=== PATIENT | male | born 1970 | race African-American/Black ===

== ENCOUNTER 2017-11-08 17:09 | Emergency (ER) | payer SELFPAY ==
[2017-11-08] MEDS ORDERED: Thiamine IV 100 MG, Folic Acid IV* 1 MG, Multiple Vitamin IV ADULT* 10 ML in NS 0.9% 10... IV ONE (17:24)
[2017-11-08 17:44] LABS: ABS Basophils 0 10^3/ul (0-0.2); ABS Eosinophils 0.1 10^3/ul (0-0.6); ABS Lymphocytes 1.5 10^3/ul (1.0-4.8); ABS Monocytes 0.8 10^3/ul (0-0.8); ABS Neutrophils 6.1 10^3/ul (1.5-7.7); ABS Nucleated RBC 0 10^3/ul; Eosinophil % 1.1 % (0-6); Hematocrit 51 % (42-52); Hemoglobin 17.6 g/dl (14.0-18.0); Lymphocyte % 17.5 % (25-47); Mean Corpuscular HGB Conc 34 g/dl (31-36); Mean Corpuscular Hemoglobin 33 pg (27-31); Mean Corpuscular Volume 96 fL (80-94); Mean Platelet Volume 7.9 um3 (7.4-10.4); Nucleated Red Blood Cells % 0.1; Platelet Count 203 10^3/ul (150-450); Red Blood Count 5.35 10^6/ul (4.0-5.4); Red Cell Distribution Width 15 % (10.5-15); White Blood Count 8.5 10^3/ul (3.5-10.8)
[2017-11-08 17:51] LABS: Urine Appearance Clear; Urine Blood Negative (Negative); Urine Color Colorless; Urine Ketones Negative (Negative); Urine Protein Negative (Negative); Urine Specific Gravity 1.001 (1.010-1.030); Urine Urobilinogen Negative (Negative)
[2017-11-08 18:04] LABS: EGFR Non-African American 86.4 (>60)
[2017-11-08 21:53] VITALS: BP 145/88
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
== END 2017-11-08 21:52 | disposition home or self-care (01) ==
LOC: ED 17:09
DX: F10.129 Alcohol abuse with intoxication, unspecified (principal); Z72.0 Tobacco use; Y90.8 Blood alcohol level of 240 mg/100 ml or more
CPT/HCPCS: 36415; 80053; 80307; 80320; 80329; 81003; 84443; 85025; 96360; 99284; G0480; J3411

== ENCOUNTER 2022-09-14 12:09 | Inpatient (IN) ==
[2022-09-14] MEDS ORDERED: LORazepam 2 mg VIAL 1 ml IV PUSH ONE (12:24)
[2022-09-14] MEDS ORDERED: Lorazepam PYXIS KEY PRN (12:24)
[2022-09-14] MEDS ORDERED: Thiamine 100 MG/ML 2 ml VIAL 100 MG, Folic Acid IV 1 MG, Multiple Vitamin IV ADULT 10 M... IV ONE (12:26)
[2022-09-14] MEDS ORDERED: Midazolam 2 mg/2 ml VIAL 1 mg/ml 2 ml VIAL (2 mg) IV SLOW PU ONE ×2 (12:46→20:14)
[2022-09-14] MEDS ORDERED: niCARdipine 0.1MG/ML IVPREMIX 20 MG/200 ML BAG IV ONE (12:52)
[2022-09-14] MEDS ORDERED: MULTIPLE VITAMIN IV ONE (13:00)
[2022-09-14] MEDS ORDERED: [UNRECOGNIZED DRUG - OTHER] IV ONE (13:00)
[2022-09-14] MEDS ORDERED: FOLIC ACID IV ONE ×2 (13:00→19:00)
[2022-09-14] MEDS ORDERED: THIAMINE IV ONE ×2 (13:00→19:00)
[2022-09-14] MEDS ORDERED: niCARdipine 0.1MG/ML IVPREMIX 20 MG/200 ML BAG IV SCH (13:00)
[2022-09-14 13:01] LABS: Hematocrit 45 % (42-52); Hemoglobin 15.7 g/dL (14.0-18.0); Mean Corpuscular Hemoglobin 32 pg (27-31); Mean Corpuscular Hgb Conc 35 g/dL (31-36); Mean Corpuscular Volume 90 fL (80-94); Red Blood Count 4.96 10^6 /uL (4.18-5.48); Red Cell Distribution Width 15 % (10-15); White Blood Count 15.2 10^3/uL (3.5-10.8)
[2022-09-14 13:21] LABS: ABS Lymphocytes 0.8 10^3/ul (1.0-4.8); ABS Monocytes 0.9 10^3/ul (0-0.8); ABS Neutrophils 13.5 10^3/ul (1.5-7.7); Eosinophil % 0.1 %; Mean Platelet Volume 9.1 fL (7.4-10.4); Nucleated Red Blood Cells % 0.1; Platelet Count 95 10^3/uL (150-450)
[2022-09-14] MEDS ORDERED: diazePAM INJ CARPUJECT 5 MG/ML SYRINGE IV ONE ×3 (13:40→16:38)
[2022-09-14 13:43] LABS: ALT 31 U/L (7-52); Albumin 5.3 g/dL (3.2-5.2); Albumin/Globulin Ratio 2.1 (1-3); Alcohol, S < 13 mg/dL (<13); Alkaline Phosphatase 74 U/L (35-149); Blood Urea Nitrogen 54 mg/dL (6-24); CO2 Carbon Dioxide 21 mmol/L (22-32); Calcium 10.8 mg/dL (8.6-10.3); Chloride 105 mmol/L (101-111); Creatinine, Serum 3.33 mg/dL (0.67-1.17); Globulin 2.5 g/dL (2-4); Glucose 124 mg/dL (70-100); Magnesium 2.5 mg/dL (1.9-2.7); Sodium 144 mmol/L (135-145); Total Protein 7.8 g/dL (6.4-8.9); eGFR CKD-EPI 21.6 (>60)
[2022-09-14 13:57] LABS: Anion Gap 18 mmol/L (2-11)
[2022-09-14 14:11] LABS: Creatine Kinase 2178 U/L (10-223)
[2022-09-14] MEDS ORDERED: Lactated Ringers 1000 ml BAG 1,000 ML IV ONE ×2 (14:12→17:49)
[2022-09-14 15:08] LABS: Lipase 21 U/L (11.0-82.0)
[2022-09-14] MEDS ORDERED: NS 0.9% IVPB ONE (15:18)
[2022-09-14] MEDS ORDERED: Dexamethasone IV 4 MG/ML VIAL 1 ml VIAL IV SLOW PU ONE (15:18)
[2022-09-14] MEDS ORDERED: Acyclovir IV 1,000 MG in NS 0.9% 250 ml 250 ML IVPB ONE (15:18)
[2022-09-14] MEDS ORDERED: AMPICILLIN ADVAN IVPB ONE (15:18)
[2022-09-14 15:19] LABS: INR 1.24 (0.88-1.18)
[2022-09-14 15:31] LABS: Urine Benzodiazepine Screen None Detected (None Detect); Urine Cannabinoids Screen None Detected (None Detect); Urine Opiates Screen None Detected (None Detect)
[2022-09-14 16:03] LABS: Potassium Redraw 3.4 mmol/L (3.5-5.0)
[2022-09-14] MEDS: cefTRIAXone 1 gm/50 mL D5W 1 GM/50 ML BAG IV SCH (16:15)
[2022-09-14] MEDS ORDERED: levETIRAcetam 1000MG IVPREMIX 1,000 MG/100 ML BAG IVPB ONE (16:38)
[2022-09-14] MEDS: diazePAM INJ CARPUJECT 5 MG/ML SYRINGE IV ONE ×2 (17:07→17:08)
[2022-09-14] MEDS ORDERED: HYDROmorphone 1 MG/1 ML SYRINGE IV ONE ×2 (17:14→18:17)
[2022-09-14] MEDS ORDERED: Succinylcholine 200 mg VIAL 20 mg/ml 10 ml VIAL (200 mg) IV ONE (17:14)
[2022-09-14] MEDS ORDERED: Etomidate 20 mg/10 ml 2 MG/ML 10 ml VIAL IV ONE (17:14)
[2022-09-14] MEDS ORDERED: Propofol 10 mg/ml 100 ML BTL 1,000 MG/100 ML BTL ONE (17:19)
[2022-09-14] MEDS ORDERED: Succinylcholine 200 mg VIAL 20 mg/ml 10 ml VIAL (200 mg) ONE ×2 (17:20→17:41)
[2022-09-14] MEDS: Propofol 10 mg/ml 100 ML BTL 1,000 MG/100 ML BTL IV SCH (17:41)
[2022-09-14] MEDS ORDERED: Etomidate 40 mg/20 ml (2 MG/ML) 20 ml VIAL (40 mg) ONE (17:41)
[2022-09-14] MEDS ORDERED: Folic Acid IV 1 MG in NS 0.9% 50 ML 50 ML IV ONE (18:20)
[2022-09-14] MEDS ORDERED: Vancomycin 1,500 MG in NS 0.9% 250 ml 250 ML IVPB ONE (18:28)
[2022-09-14 18:38] LABS: Urine Appearance Cloudy; Urine Bilirubin Negative (Negative); Urine Blood 3+ (Negative); Urine Color Amber; Urine Glucose 1+(50 mg/dL) (Negative); Urine Ketones Negative (Negative); Urine Nitrite Negative (Negative); Urine Protein 2+(100 mg/dL) (Negative); Urine Specific Gravity 1.014 (1.002-1.030); Urine Urobilinogen Negative (Negative)
[2022-09-14 18:51] LABS: Body Fluid Source Cerebral Spinal
[2022-09-14 18:55] LABS: Urine Bacteria Absent (Absent); Urine Red Blood Cell 3+(>10/hpf) (Absent); Urine Squamous Epithelial Cell Present (Absent); Urine White Blood Cell Trace(0-5/hpf) (Absent)
[2022-09-14] MEDS ORDERED: Vancomycin 1,000 MG in NS 0.9% 250 ml 250 ML IVPB ONE (18:59)
[2022-09-14] MEDS ORDERED: Vancomycin per Pharmacy 1 EA NOTE FOLLOW UP SCH (19:00)
[2022-09-14] MEDS ORDERED: Chlorhexidine MOUTHWASH 0.12% 15 ML UDC TOPICAL SCH (19:00)
[2022-09-14] MEDS ORDERED: Thiamine IV 100 MG/ML VIAL (only for Bannana Bags !) IVPB SCH (19:00)
[2022-09-14] MEDS ORDERED: [UNRECOGNIZED DRUG - OTHER] IV ONE (19:00)
[2022-09-14] MEDS ORDERED: MVI IV ONE (19:00)
[2022-09-14 19:09] LABS: Urine Creatinine Concentration 192.12 mg/dL (20.00-370.00); Urine Sodium Concentration < 18 mmol/L
[2022-09-14 19:11] LABS: CSF Glucose 76 mg/dL (40-70)
[2022-09-14 19:14] LABS: Albumin/Globulin Ratio 1.8 (1-3); Calcium 8.8 mg/dL (8.6-10.3); Creatinine, Serum 3.17 mg/dL (0.67-1.17); Globulin 2.2 g/dL (2-4); Phosphorus 3.6 mg/dL (2.5-5.0); Potassium 3.3 mmol/L (3.5-5.0); Total Bilirubin 2.3 mg/dL (0.2-1.0); Total Protein 6.2 g/dL (6.4-8.9)
[2022-09-14 19:23] LABS: Ferritin 1119.7 ng/mL (24-336)
[2022-09-14 19:37] LABS: PCO2 Arterial 34 mmHg (35-45); PO2 Arterial 338 mmHg (80-100)
[2022-09-14 19:40] LABS: Direct Bilirubin 0.9 mg/dL (0.03-0.18); Indirect Bilirubin 2.3 mg/dL (0.3-1.0); Total Bilirubin 3.2 mg/dL (0.2-1.0)
[2022-09-14 19:57] LABS: Body Fluid Appearance Clear; Body Fluid Color Colorless; CSF Tube # 4
[2022-09-14 19:59] LABS: Body Fluid WBC 2 /mcL
[2022-09-14] MEDS ORDERED: Midazolam 2 mg/2 ml VIAL 1 mg/ml 2 ml VIAL (2 mg) ONE (20:17)
[2022-09-14 20:40] LABS: Body Fluid Mono 70 %; Body Fluid Total Cells Counted 30
[2022-09-14] MEDS ORDERED: Heparin 5000 UNITS/ML 1 mL VIAL SUBCUT SCH (21:00)
[2022-09-14 21:02] LABS: PCO2 Arterial 33 mmHg (35-45); PO2 Arterial 114 mmHg (80-100)
[2022-09-14] MEDS: Pantoprazole VIAL 40 MG VIAL IV SCH (22:15)
[2022-09-14] MEDS: Dexamethasone IV 4 MG/ML VIAL 1 ml VIAL IV SLOW PU SCH (22:16)
[2022-09-14 22:56] LABS: Erythrocyte Sed Rate 13 mm/Hr (0-19)
[2022-09-14] MEDS: Lactated Ringers 1000 ml BAG 1,000 ML IV SCH (23:30)
[2022-09-15] MEDS: Ampicillin ADVAN 2 GM in NS 0.9% 100 ml BAG 100 ML IVPB SCH ×2 (00:34→08:10)
[2022-09-15] MEDS: Chlorhexidine MOUTHWASH 0.12% 15 ML UDC TOPICAL SCH ×6 (00:45→22:31)
[2022-09-15] MEDS: Dexmedetomidine 1,000 MCG in NS 0.9% 250 ml 240 ML IV SCH ×2 (02:07→07:32)
[2022-09-15] MEDS: cefTRIAXone 1 gm/50 mL D5W 1 GM/50 ML BAG IV SCH (03:59)
[2022-09-15] MEDS ORDERED: levETIRAcetam 1000MG IVPREMIX 1,000 MG/100 ML BAG IVPB ONE (05:00)
[2022-09-15] MEDS: NS 0.9% IVPB SCH ×2 (05:01→16:10)
[2022-09-15] MEDS: ACYCLOVIR IVPB SCH ×2 (05:01→16:10)
[2022-09-15] MEDS: Dexamethasone IV 4 MG/ML VIAL 1 ml VIAL IV SLOW PU SCH ×3 (05:04→22:32)
[2022-09-15 05:53] LABS: ABS Lymphocytes 0.3 10^3/ul (1.0-4.8); ABS Monocytes 0.2 10^3/ul (0-0.8); ABS Neutrophils 8.5 10^3/ul (1.5-7.7); Hematocrit 27 % (42-52); Hemoglobin 9.5 g/dL (14.0-18.0); Lymphocyte % 3.6 %; Mean Corpuscular Hemoglobin 33 pg (27-31); Mean Corpuscular Hgb Conc 36 g/dL (31-36); Mean Corpuscular Volume 91 fL (80-94); Mean Platelet Volume 10.1 fL (7.4-10.4); Nucleated Red Blood Cells % 0.1; Platelet Count 67 10^3/uL (150-450); Red Blood Count 2.92 10^6 /uL (4.18-5.48); Red Cell Distribution Width 15 % (10-15)
[2022-09-15] MEDS ORDERED: Enoxaparin 40 MG/0.4 ML SYR SUBCUT SCH (06:00)
[2022-09-15 06:12] LABS: Albumin/Globulin Ratio 1.9 (1-3); C Reactive Protein 24.18 mg/L (<8.01); Calcium 8.1 mg/dL (8.6-10.3); Creatinine, Serum 2.8 mg/dL (0.67-1.17); Direct Bilirubin 0.4 mg/dL (0.03-0.18); Globulin 1.6 g/dL (2-4); Indirect Bilirubin 0.8 mg/dL (0.3-1.0); Phosphorus 4.7 mg/dL (2.5-5.0); Potassium 3.5 mmol/L (3.5-5.0); Total Bilirubin 1.2 mg/dL (0.2-1.0); Total Protein 4.6 g/dL (6.4-8.9); eGFR CKD-EPI 26.7 (>60)
[2022-09-15] MEDS: levETIRAcetam 500 MG IVPREMIX 500 MG/100 ML BAG IV SCH ×2 (06:16→18:10)
[2022-09-15] MEDS: Propofol 10 mg/ml 100 ML BTL 1,000 MG/100 ML BTL IV SCH ×3 (07:28→16:52)
[2022-09-15] MEDS: Lactated Ringers 1000 ml BAG 1,000 ML IV SCH (07:58)
[2022-09-15] MEDS: KCL 20 MEQ/100 ML IVPREMIX 20 MEQ/100 ML BAG IV SCH ×2 (08:04→10:58)
[2022-09-15 08:25] LABS: PCO2 Arterial 26 mmHg (35-45); PO2 Arterial 160 mmHg (80-100)
[2022-09-15] MEDS: Thiamine IV 500 MG in NS 0.9% 250 ML (Wernicke-Korsakoff) IV SCH ×3 (08:51→22:32)
[2022-09-15] MEDS ORDERED: Thiamine IV 100 MG/ML VIAL (only for Bannana Bags !) IVPB SCH (09:00)
[2022-09-15] MEDS ORDERED: Mannitol 25% (12.5 GM) 50 ML 12.5 GM/50 ML VIAL IV ONE (09:10)
[2022-09-15] MEDS ORDERED: Mannitol 25% (12.5 GM) 50 ML 12.5 GM/50 ML VIAL ONE (09:10)
[2022-09-15] MEDS ORDERED: MANNITOL IVPB ONE (09:30)
[2022-09-15 09:49] LABS: ABS Lymphocytes 0.3 10^3/ul (1.0-4.8); ABS Monocytes 0.2 10^3/ul (0-0.8); ABS Neutrophils 7.5 10^3/ul (1.5-7.7); Hematocrit 26 % (42-52); Hemoglobin 9.1 g/dL (14.0-18.0); Lymphocyte % 3.8 %; Mean Corpuscular Hemoglobin 32 pg (27-31); Mean Corpuscular Hgb Conc 35 g/dL (31-36); Mean Corpuscular Volume 93 fL (80-94); Mean Platelet Volume 10.1 fL (7.4-10.4); Platelet Count 68 10^3/uL (150-450); Red Blood Count 2.81 10^6 /uL (4.18-5.48); Red Cell Distribution Width 15 % (10-15)
[2022-09-15] MEDS ORDERED: Magnesium Sulfate 2 gm BAG 2 GM/50 ML BAG IVPB ONE (10:32)
[2022-09-15 11:34] LABS: High Sensitivity Troponin 1 Hr 364 pg/mL (<20)
[2022-09-15 11:42] LABS: LDH 365 U/L (140-271); Sodium 145 mmol/L (135-145)
[2022-09-15 12:59] LABS: HIV 4th Generation Nonreactive (Nonreactive)
[2022-09-15] MEDS ORDERED: Labetalol IV 5 MG/ML 20 ml VIAL IV PUSH PRN ×2 (13:31→22:00)
[2022-09-15] MEDS ORDERED: Labetalol IV 5 MG/ML 20 ml VIAL IV PUSH ONE (14:21)
[2022-09-15] MEDS ORDERED: Vancomycin 750 MG in NS 0.9% 250 ML IVPB SCH (15:00)
[2022-09-15] MEDS ORDERED: Acetaminophen IV 1 GM/100ML 1,000 MG/100 ML BAG IV ONE (15:09)
[2022-09-15] MEDS ORDERED: hydrALAZINE 20 mg/ml 1 ML Vial IV ONE (15:09)
[2022-09-15] MEDS: Acetaminophen IV 1 GM/100ML 1,000 MG/100 ML BAG IV PRN (15:10)
[2022-09-15] MEDS ORDERED: hydrALAZINE 20 mg/ml 1 ML Vial IV IV SLOW PU PRN (15:23)
[2022-09-15] MEDS ORDERED: Lactated Ringers 1000 ml BAG 1,000 ML IV SCH (15:33)
[2022-09-15] MEDS: NS 0.9% 1000 ml BAG 1,000 ML IV SCH (17:45)
[2022-09-15] MEDS: Pantoprazole VIAL 40 MG VIAL IV SCH (18:07)
[2022-09-15] MEDS: Labetalol IV 5 MG/ML 20 ml VIAL IV PUSH PRN (20:03)
[2022-09-15] MEDS ORDERED: LORazepam 2 mg VIAL 1 ml IV PUSH ONE (22:47)
[2022-09-15] MEDS ORDERED: Lorazepam PYXIS KEY PRN (22:47)
[2022-09-15] MEDS ORDERED: Lorazepam PYXIS KEY ONE (22:54)
[2022-09-16] MEDS: hydrALAZINE 20 mg/ml 1 ML Vial IV IV SLOW PU PRN ×2 (00:46→07:36)
[2022-09-16] MEDS: Chlorhexidine MOUTHWASH 0.12% 15 ML UDC TOPICAL SCH ×6 (02:52→20:03)
[2022-09-16] MEDS: Labetalol IV 5 MG/ML 20 ml VIAL IV PUSH PRN ×3 (02:58→19:46)
[2022-09-16] MEDS: NS 0.9% IVPB SCH ×2 (04:17→17:07)
[2022-09-16] MEDS: ACYCLOVIR IVPB SCH ×2 (04:17→17:07)
[2022-09-16] MEDS: NS 0.9% 1000 ml BAG 1,000 ML IV SCH ×2 (04:54→15:44)
[2022-09-16] MEDS: Dexamethasone IV 4 MG/ML VIAL 1 ml VIAL IV SLOW PU SCH ×2 (05:19→21:26)
[2022-09-16 05:42] LABS: Hematocrit 31 % (42-52); Hemoglobin 10.5 g/dL (14.0-18.0); Mean Corpuscular Hemoglobin 32 pg (27-31); Mean Corpuscular Hgb Conc 34 g/dL (31-36); Mean Corpuscular Volume 92 fL (80-94); Mean Platelet Volume 9.6 fL (7.4-10.4); Platelet Count 93 10^3/uL (150-450); Red Blood Count 3.32 10^6 /uL (4.18-5.48); Red Cell Distribution Width 15 % (10-15); White Blood Count 17.1 10^3/uL (3.5-10.8)
[2022-09-16 06:50] LABS: Albumin 3.5 g/dL (3.2-5.2); Albumin/Globulin Ratio 1.9 (1-3); Calcium 8.4 mg/dL (8.6-10.3); Creatinine, Serum 2.51 mg/dL (0.67-1.17); Globulin 1.8 g/dL (2-4); Magnesium 2.4 mg/dL (1.9-2.7); Potassium 3.2 mmol/L (3.5-5.0); Total Bilirubin 1.5 mg/dL (0.2-1.0); Total Protein 5.3 g/dL (6.4-8.9); eGFR CKD-EPI 30.4 (>60)
[2022-09-16] MEDS: Enoxaparin 30 MG/0.3 ML SYR SUBCUT SCH (07:18)
[2022-09-16] MEDS: levETIRAcetam 500 MG IVPREMIX 500 MG/100 ML BAG IV SCH (07:18)
[2022-09-16] MEDS: Thiamine IV 500 MG in NS 0.9% 250 ML (Wernicke-Korsakoff) IV SCH ×3 (08:07→21:01)
[2022-09-16 08:22] LABS: ABS Lymphocytes 0.4 10^3/ul (1.0-4.8); ABS Monocytes 0.8 10^3/ul (0-0.8); Eosinophil % 0.1 %; Lymphocyte % 2.1 %
[2022-09-16] MEDS: KCL 20 MEQ/100 ML IVPREMIX 20 MEQ/100 ML BAG IV SCH ×4 (08:50→15:40)
[2022-09-16] MEDS: Propofol 10 mg/ml 100 ML BTL 1,000 MG/100 ML BTL IV SCH ×2 (09:00→19:00)
[2022-09-16] MEDS ORDERED: hydrALAZINE 20 mg/ml 1 ML Vial IV IV SLOW PU PRN (12:47)
[2022-09-16] MEDS ORDERED: hydrALAZINE 20 mg/ml 1 ML Vial IV ONE (12:53)
[2022-09-16] MEDS ORDERED: Piperacillin/Tazobac ADVAN 3.375 GM in NS 0.9% 100 ml BAG 100 ML IV ONE (13:29)
[2022-09-16] MEDS ORDERED: Zosyn per Pharmacy NOTE FOLLOW UP SCH (14:00)
[2022-09-16] MEDS: levETIRAcetam 1000MG IVPREMIX 1,000 MG/100 ML BAG IVPB SCH (17:24)
[2022-09-16 18:07] LABS: C Reactive Protein 20.59 mg/L (<8.01)
[2022-09-16] MEDS: Pantoprazole VIAL 40 MG VIAL IV SCH (19:08)
[2022-09-16] MEDS: ZOSYN 3.375 GM Q8H per EXTENDED INFUSION IV SCH (19:38)
[2022-09-16 21:02] LABS: HSV 1 PCR, CSF Negative (Negative); HSV 2 PCR, CSF Negative (Negative)
[2022-09-17] MEDS: Chlorhexidine MOUTHWASH 0.12% 15 ML UDC TOPICAL SCH ×6 (00:15→20:13)
[2022-09-17] MEDS: NS 0.9% 1000 ml BAG 1,000 ML IV SCH ×2 (02:21→11:48)
[2022-09-17] MEDS: hydrALAZINE 20 mg/ml 1 ML Vial IV IV SLOW PU PRN ×2 (02:47→16:12)
[2022-09-17] MEDS: ZOSYN 3.375 GM Q8H per EXTENDED INFUSION IV SCH ×3 (03:08→19:07)
[2022-09-17] MEDS: levETIRAcetam 1000MG IVPREMIX 1,000 MG/100 ML BAG IVPB SCH ×2 (03:36→16:03)
[2022-09-17] MEDS: ACYCLOVIR IVPB SCH (03:37)
[2022-09-17] MEDS: NS 0.9% IVPB SCH (03:37)
[2022-09-17 05:31] LABS: ABS Lymphocytes 0.6 10^3/ul (1.0-4.8); ABS Monocytes 0.8 10^3/ul (0-0.8); ABS Neutrophils 11.7 10^3/ul (1.5-7.7); Eosinophil % 0.1 %; Hematocrit 30 % (42-52); Hemoglobin 10.1 g/dL (14.0-18.0); Lymphocyte % 4.6 %; Mean Corpuscular Hemoglobin 31 pg (27-31); Mean Corpuscular Hgb Conc 34 g/dL (31-36); Mean Corpuscular Volume 94 fL (80-94); Nucleated Red Blood Cells % 0.1; Platelet Count 69 10^3/uL (150-450); Red Cell Distribution Width 16 % (10-15); White Blood Count 13.1 10^3/uL (3.5-10.8)
[2022-09-17 05:46] LABS: Albumin 3.5 g/dL (3.2-5.2); Albumin/Globulin Ratio 2.1 (1-3); Creatinine, Serum 2.33 mg/dL (0.67-1.17); Globulin 1.7 g/dL (2-4); Magnesium 2.2 mg/dL (1.9-2.7); Potassium 3.9 mmol/L (3.5-5.0); Total Bilirubin 2.6 mg/dL (0.2-1.0); Total Protein 5.2 g/dL (6.4-8.9); eGFR CKD-EPI 33.2 (>60)
[2022-09-17] MEDS: Enoxaparin 30 MG/0.3 ML SYR SUBCUT SCH (06:19)
[2022-09-17] MEDS: Dexamethasone IV 4 MG/ML VIAL 1 ml VIAL IV SLOW PU SCH ×3 (06:19→21:29)
[2022-09-17] MEDS: Propofol 10 mg/ml 100 ML BTL 1,000 MG/100 ML BTL IV SCH ×2 (07:32→17:29)
[2022-09-17] MEDS: Thiamine IV 500 MG in NS 0.9% 250 ML (Wernicke-Korsakoff) IV SCH ×3 (09:22→20:16)
[2022-09-17 11:50] LABS: Albumin, CSF 92.1 mg/dL (<=27.0); Albumin, S 5100 mg/dL; IgG Index, CSF 0.63 (<=0.85); IgG, CSF 13.9 mg/dL (<=8.1); IgG, S 1210 mg/dL (767 - 1590); IgG/Albumin, CSF 0.15 (<=0.21); IgG/Albumin, S 0.24 (<=0.40); Synthesis Rate, CSF 20.17 mg/24 h (<=12)
[2022-09-17] MEDS ORDERED: Vancomycin Trough Check NOTE FOLLOW UP ONE (14:30)
[2022-09-17] MEDS: Pantoprazole VIAL 40 MG VIAL IV SCH (17:30)
[2022-09-18] MEDS: NS 0.9% 1000 ml BAG 1,000 ML IV SCH ×3 (00:10→21:39)
[2022-09-18] MEDS: Chlorhexidine MOUTHWASH 0.12% 15 ML UDC TOPICAL SCH ×6 (00:12→19:57)
[2022-09-18] MEDS: hydrALAZINE 20 mg/ml 1 ML Vial IV IV SLOW PU PRN ×4 (00:36→17:05)
[2022-09-18] MEDS: Propofol 10 mg/ml 100 ML BTL 1,000 MG/100 ML BTL IV SCH ×3 (01:48→21:40)
[2022-09-18] MEDS: ZOSYN 3.375 GM Q8H per EXTENDED INFUSION IV SCH ×3 (02:44→18:30)
[2022-09-18 03:31] LABS: Hematocrit 30 % (42-52); Hemoglobin 10.5 g/dL (14.0-18.0); Mean Corpuscular Hemoglobin 33 pg (27-31); Mean Corpuscular Hgb Conc 35 g/dL (31-36); Mean Corpuscular Volume 94 fL (80-94); Red Blood Count 3.19 10^6 /uL (4.18-5.48); Red Cell Distribution Width 15 % (10-15)
[2022-09-18] MEDS: levETIRAcetam 1000MG IVPREMIX 1,000 MG/100 ML BAG IVPB SCH ×2 (03:56→15:27)
[2022-09-18 04:21] LABS: Albumin 3.6 g/dL (3.2-5.2); Calcium 8.1 mg/dL (8.6-10.3); Magnesium 2.2 mg/dL (1.9-2.7); Potassium 3.8 mmol/L (3.5-5.0); Total Bilirubin 2.9 mg/dL (0.2-1.0)
[2022-09-18 04:27] LABS: Albumin/Globulin Ratio 1.7 (1-3); C Reactive Protein 17.06 mg/L (<8.01); Creatinine, Serum 2.24 mg/dL (0.67-1.17); Globulin 2.1 g/dL (2-4); Total Protein 5.7 g/dL (6.4-8.9); eGFR CKD-EPI 34.8 (>60)
[2022-09-18] MEDS: Enoxaparin 30 MG/0.3 ML SYR SUBCUT SCH (05:05)
[2022-09-18] MEDS: Dexamethasone IV 4 MG/ML VIAL 1 ml VIAL IV SLOW PU SCH ×3 (05:06→22:04)
[2022-09-18 07:12] LABS: ABS Lymphocytes 0.6 10^3/ul (1.0-4.8); ABS Monocytes 0.7 10^3/ul (0-0.8); ABS Neutrophils 8.7 10^3/ul (1.5-7.7); Eosinophil % 0.2 %; Lymphocyte % 5.8 %; Mean Platelet Volume 9.1 fL (7.4-10.4); Nucleated Red Blood Cells % 0.3; Platelet Count 54 10^3/uL (150-450)
[2022-09-18] MEDS: Thiamine IV 500 MG in NS 0.9% 250 ML (Wernicke-Korsakoff) IV SCH ×3 (09:54→20:41)
[2022-09-18] MEDS: methylPREDNISolone SOD SUCC 40 mg/ml 1 ml VIAL IV SCH ×2 (15:27→23:02)
[2022-09-18 15:31] LABS: CSF West Nile Virus IgG Ab Negative (Negative); CSF West Nile Virus IgM Ab Negative (Negative)
[2022-09-18] MEDS: Pantoprazole VIAL 40 MG VIAL IV SCH (18:17)
[2022-09-18] MEDS ORDERED: hydrALAZINE 20 mg/ml 1 ML Vial IV IV SLOW PU PRN (18:47)
[2022-09-19] MEDS: Chlorhexidine MOUTHWASH 0.12% 15 ML UDC TOPICAL SCH ×6 (00:18→20:00)
[2022-09-19] MEDS: ZOSYN 3.375 GM Q8H per EXTENDED INFUSION IV SCH ×3 (03:01→18:03)
[2022-09-19] MEDS ORDERED: Sodium Chloride 3% HYPERTONIC 150 ML IV ONE (03:51)
[2022-09-19] MEDS ORDERED: SODIUM CHLORIDE 3% IV ONE (03:57)
[2022-09-19] MEDS ORDERED: HYPERTONIC IV ONE (03:57)
[2022-09-19] MEDS: levETIRAcetam 1000MG IVPREMIX 1,000 MG/100 ML BAG IVPB SCH ×2 (04:30→15:09)
[2022-09-19] MEDS: Dexamethasone IV 4 MG/ML VIAL 1 ml VIAL IV SLOW PU SCH (05:40)
[2022-09-19] MEDS: Enoxaparin 30 MG/0.3 ML SYR SUBCUT SCH (05:40)
[2022-09-19 05:48] LABS: Hematocrit 28 % (42-52); Hemoglobin 9.2 g/dL (14.0-18.0); Mean Corpuscular Hemoglobin 32 pg (27-31); Mean Corpuscular Hgb Conc 34 g/dL (31-36); Mean Corpuscular Volume 96 fL (80-94); Mean Platelet Volume 9.3 fL (7.4-10.4); Platelet Count 47 10^3/uL (150-450); Red Blood Count 2.87 10^6 /uL (4.18-5.48); Red Cell Distribution Width 15 % (10-15)
[2022-09-19] MEDS: methylPREDNISolone SOD SUCC 40 mg/ml 1 ml VIAL IV SCH ×3 (06:07→22:25)
[2022-09-19 06:16] LABS: Albumin 3.3 g/dL (3.2-5.2); Albumin/Globulin Ratio 1.7 (1-3); C Reactive Protein 12.68 mg/L (<8.01); Calcium 7.9 mg/dL (8.6-10.3); Creatinine, Serum 2.26 mg/dL (0.67-1.17); Globulin 1.9 g/dL (2-4); Potassium 4.2 mmol/L (3.5-5.0); Total Bilirubin 2.1 mg/dL (0.2-1.0); Total Protein 5.2 g/dL (6.4-8.9); eGFR CKD-EPI 34.5 (>60)
[2022-09-19 06:18] LABS: ABS Lymphocytes 0.5 10^3/ul (1.0-4.8); ABS Monocytes 0.4 10^3/ul (0-0.8); ABS Nucleated RBC 0.1 10^3/ul; Eosinophil % 0.1 %; Lymphocyte % 7.6 %; Nucleated Red Blood Cells % 1.2
[2022-09-19] MEDS: NS 0.9% 1000 ml BAG 1,000 ML IV SCH ×2 (07:12→16:45)
[2022-09-19] MEDS: Propofol 10 mg/ml 100 ML BTL 1,000 MG/100 ML BTL IV SCH ×3 (07:14→16:32)
[2022-09-19] MEDS: Thiamine IV 500 MG in NS 0.9% 250 ML (Wernicke-Korsakoff) IV SCH ×3 (08:07→20:28)
[2022-09-19] MEDS: hydrALAZINE 20 mg/ml 1 ML Vial IV IV SLOW PU PRN ×3 (11:12→20:49)
[2022-09-19] MEDS: Pantoprazole VIAL 40 MG VIAL IV SCH (17:06)
[2022-09-19] MEDS: Acetaminophen IV 1 GM/100ML 1,000 MG/100 ML BAG IV PRN (18:11)
[2022-09-20] MEDS: Chlorhexidine MOUTHWASH 0.12% 15 ML UDC TOPICAL SCH ×6 (00:18→19:38)
[2022-09-20] MEDS: hydrALAZINE 20 mg/ml 1 ML Vial IV IV SLOW PU PRN ×3 (01:07→09:49)
[2022-09-20] MEDS: NS 0.9% 1000 ml BAG 1,000 ML IV SCH ×3 (02:30→21:28)
[2022-09-20] MEDS: ZOSYN 3.375 GM Q8H per EXTENDED INFUSION IV SCH ×3 (02:33→17:34)
[2022-09-20] MEDS: levETIRAcetam 1000MG IVPREMIX 1,000 MG/100 ML BAG IVPB SCH ×2 (03:50→14:26)
[2022-09-20] MEDS: Propofol 10 mg/ml 100 ML BTL 1,000 MG/100 ML BTL IV SCH ×2 (03:53→14:31)
[2022-09-20 05:39] LABS: ABS Lymphocytes 0.6 10^3/ul (1.0-4.8); ABS Monocytes 0.7 10^3/ul (0-0.8); ABS Neutrophils 7.2 10^3/ul (1.5-7.7); ABS Nucleated RBC 0.1 10^3/ul; Eosinophil % 0.1 %; Hematocrit 27 % (42-52); Hemoglobin 9.4 g/dL (14.0-18.0); Lymphocyte % 6.8 %; Mean Corpuscular Hemoglobin 33 pg (27-31); Mean Corpuscular Hgb Conc 34 g/dL (31-36); Mean Corpuscular Volume 96 fL (80-94); Mean Platelet Volume 9.8 fL (7.4-10.4); Nucleated Red Blood Cells % 1.1; Platelet Count 48 10^3/uL (150-450); Red Blood Count 2.85 10^6 /uL (4.18-5.48); Red Cell Distribution Width 15 % (10-15); White Blood Count 8.5 10^3/uL (3.5-10.8)
[2022-09-20 05:54] LABS: Calcium 7.9 mg/dL (8.6-10.3); Creatinine, Serum 2.34 mg/dL (0.67-1.17); Magnesium 2.3 mg/dL (1.9-2.7); eGFR CKD-EPI 33.1 (>60)
[2022-09-20] MEDS: Enoxaparin 30 MG/0.3 ML SYR SUBCUT SCH (06:03)
[2022-09-20] MEDS: methylPREDNISolone SOD SUCC 40 mg/ml 1 ml VIAL IV SCH ×3 (06:03→23:19)
[2022-09-20] MEDS: Labetalol IV 5 MG/ML 20 ml VIAL IV PUSH PRN ×2 (07:19→11:23)
[2022-09-20] MEDS: Acetaminophen IV 1 GM/100ML 1,000 MG/100 ML BAG IV PRN (13:11)
[2022-09-20] MEDS: Pantoprazole VIAL 40 MG VIAL IV SCH (17:34)
[2022-09-21] MEDS: hydrALAZINE 20 mg/ml 1 ML Vial IV IV SLOW PU PRN ×2 (00:21→22:09)
[2022-09-21] MEDS: Chlorhexidine MOUTHWASH 0.12% 15 ML UDC TOPICAL SCH ×7 (00:21→23:04)
[2022-09-21] MEDS ORDERED: hydrALAZINE 20 mg/ml 1 ML Vial IV IV SLOW PU PRN ×3 (01:04→17:12)
[2022-09-21] MEDS: Labetalol IV 5 MG/ML 20 ml VIAL IV PUSH PRN ×3 (01:20→17:49)
[2022-09-21] MEDS: Propofol 10 mg/ml 100 ML BTL 1,000 MG/100 ML BTL IV SCH ×3 (02:45→23:59)
[2022-09-21] MEDS: ZOSYN 3.375 GM Q8H per EXTENDED INFUSION IV SCH ×2 (03:45→04:20)
[2022-09-21] MEDS: levETIRAcetam 1000MG IVPREMIX 1,000 MG/100 ML BAG IVPB SCH ×2 (03:46→15:26)
[2022-09-21] MEDS: Enoxaparin 30 MG/0.3 ML SYR SUBCUT SCH (04:20)
[2022-09-21 04:49] LABS: Hematocrit 30 % (42-52); Hemoglobin 10.2 g/dL (14.0-18.0); Mean Corpuscular Hemoglobin 32 pg (27-31); Mean Corpuscular Hgb Conc 34 g/dL (31-36); Mean Corpuscular Volume 96 fL (80-94); Mean Platelet Volume 9.6 fL (7.4-10.4); Platelet Count 50 10^3/uL (150-450); Red Blood Count 3.17 10^6 /uL (4.18-5.48); Red Cell Distribution Width 15 % (10-15); White Blood Count 10.2 10^3/uL (3.5-10.8)
[2022-09-21 05:10] LABS: ABS Basophils 0.1 10^3/ul (0-0.2); ABS Lymphocytes 0.6 10^3/ul (1.0-4.8); ABS Monocytes 0.7 10^3/ul (0-0.8); ABS Neutrophils 8.8 10^3/ul (1.5-7.7); Anisocytosis 1+; Nucleated Red Blood Cells % 0.3; Polychromasia 1+
[2022-09-21 05:24] LABS: Calcium 8.5 mg/dL (8.6-10.3); Creatinine, Serum 2.5 mg/dL (0.67-1.17); Magnesium 2.4 mg/dL (1.9-2.7); Potassium 3.8 mmol/L (3.5-5.0); eGFR CKD-EPI 30.5 (>60)
[2022-09-21] MEDS: methylPREDNISolone SOD SUCC 40 mg/ml 1 ml VIAL IV SCH ×3 (06:21→21:41)
[2022-09-21] MEDS: NS 0.9% 1000 ml BAG 1,000 ML IV SCH (07:29)
[2022-09-21] MEDS ORDERED: Senna TAB 8.6 mg TAB PO PRN (11:12)
[2022-09-21] MEDS: KCL 20 MEQ/100 ML IVPREMIX 20 MEQ/100 ML BAG IV SCH ×2 (11:16→13:21)
[2022-09-21] MEDS: Polyethylene Glycol 3350 17 GM PACKET PO PRN (11:22)
[2022-09-21] MEDS: Docusate LIQ 100 MG/10 ML UDC PO PRN (11:25)
[2022-09-21] MEDS ORDERED: Labetalol IV 5 MG/ML 20 ml VIAL IV PUSH PRN ×2 (15:19→17:45)
[2022-09-21] MEDS: Pantoprazole VIAL 40 MG VIAL IV SCH (20:34)
[2022-09-21] MEDS ORDERED: fentaNYL 100 mcg/2 ml 50 MCG/ML VIAL IV SLOW PU PRN (21:23)
[2022-09-22] MEDS: Labetalol IV 5 MG/ML 20 ml VIAL IV PUSH PRN ×3 (00:06→14:07)
[2022-09-22] MEDS: levETIRAcetam 1000MG IVPREMIX 1,000 MG/100 ML BAG IVPB SCH ×2 (03:50→16:28)
[2022-09-22] MEDS: Chlorhexidine MOUTHWASH 0.12% 15 ML UDC TOPICAL SCH ×3 (04:42→12:51)
[2022-09-22 05:07] LABS: Hematocrit 31 % (42-52); Hemoglobin 10.4 g/dL (14.0-18.0); Mean Corpuscular Hemoglobin 33 pg (27-31); Mean Corpuscular Hgb Conc 34 g/dL (31-36); Mean Corpuscular Volume 99 fL (80-94); Mean Platelet Volume 10.2 fL (7.4-10.4); Platelet Count 43 10^3/uL (150-450); Red Blood Count 3.13 10^6 /uL (4.18-5.48); Red Cell Distribution Width 16 % (10-15); White Blood Count 12.4 10^3/uL (3.5-10.8)
[2022-09-22 05:25] LABS: ABS Lymphocytes 0.6 10^3/ul (1.0-4.8); ABS Monocytes 0.9 10^3/ul (0-0.8); ABS Neutrophils 10.8 10^3/ul (1.5-7.7); Anisocytosis 1+; Lymphocyte % 5.2 %; Nucleated Red Blood Cells % 0.2; Polychromasia 1+
[2022-09-22 05:32] LABS: Calcium 8.6 mg/dL (8.6-10.3); Creatinine, Serum 2.42 mg/dL (0.67-1.17); Magnesium 2.6 mg/dL (1.9-2.7); Potassium 3.9 mmol/L (3.5-5.0); eGFR CKD-EPI 31.8 (>60)
[2022-09-22] MEDS: Enoxaparin 30 MG/0.3 ML SYR SUBCUT SCH (06:13)
[2022-09-22] MEDS ORDERED: KCL 20 MEQ/100 ML IVPREMIX 20 MEQ/100 ML BAG IV ONE (07:20)
[2022-09-22] MEDS: methylPREDNISolone SOD SUCC 40 mg/ml 1 ml VIAL IV SCH ×3 (08:08→23:10)
[2022-09-22] MEDS: hydrALAZINE 20 mg/ml 1 ML Vial IV IV SLOW PU PRN ×3 (09:06→22:33)
[2022-09-22] MEDS ORDERED: Metoprolol Tartrate 5 mg VIAL 5 ml VIAL (1 mg/ml) IV ONE (12:18)
[2022-09-22] MEDS: Pantoprazole VIAL 40 MG VIAL IV SCH (19:32)
[2022-09-23] MEDS: hydrALAZINE 20 mg/ml 1 ML Vial IV IV SLOW PU PRN ×2 (02:36→08:22)
[2022-09-23] MEDS: levETIRAcetam 1000MG IVPREMIX 1,000 MG/100 ML BAG IVPB SCH ×2 (03:30→15:02)
[2022-09-23 04:31] LABS: ABS Lymphocytes 0.5 10^3/ul (1.0-4.8); ABS Monocytes 0.7 10^3/ul (0-0.8); ABS Neutrophils 12.9 10^3/ul (1.5-7.7); Hematocrit 34 % (42-52); Hemoglobin 11.2 g/dL (14.0-18.0); Lymphocyte % 3.5 %; Mean Corpuscular Hemoglobin 32 pg (27-31); Mean Corpuscular Hgb Conc 33 g/dL (31-36); Mean Corpuscular Volume 98 fL (80-94); Mean Platelet Volume 9.5 fL (7.4-10.4); Platelet Count 49 10^3/uL (150-450); Red Blood Count 3.47 10^6 /uL (4.18-5.48); Red Cell Distribution Width 16 % (10-15)
[2022-09-23 04:57] LABS: Calcium 9.2 mg/dL (8.6-10.3); Creatinine, Serum 2.35 mg/dL (0.67-1.17); Magnesium 2.7 mg/dL (1.9-2.7); Phosphorus 4.9 mg/dL (2.5-5.0); Potassium 4.2 mmol/L (3.5-5.0); eGFR CKD-EPI 32.9 (>60)
[2022-09-23] MEDS: D5W 1000 ml BAG 1,000 ML IV SCH ×3 (06:32→17:57)
[2022-09-23] MEDS: methylPREDNISolone SOD SUCC 40 mg/ml 1 ml VIAL IV SCH ×2 (08:00→15:01)
[2022-09-23 17:14] LABS: Creatinine, Serum 2.26 mg/dL (0.67-1.17); Potassium 3.8 mmol/L (3.5-5.0); eGFR CKD-EPI 34.5 (>60)
[2022-09-23] MEDS: Labetalol IV 5 MG/ML 20 ml VIAL IV PUSH PRN (17:59)
[2022-09-23] MEDS: Pantoprazole VIAL 40 MG VIAL IV SCH (18:56)
[2022-09-24] MEDS: hydrALAZINE 20 mg/ml 1 ML Vial IV IV SLOW PU PRN ×3 (03:24→22:21)
[2022-09-24] MEDS: levETIRAcetam 1000MG IVPREMIX 1,000 MG/100 ML BAG IVPB SCH ×2 (03:24→16:52)
[2022-09-24 04:21] LABS: ABS Basophils 0.1 10^3/ul (0-0.2); ABS Lymphocytes 1.4 10^3/ul (1.0-4.8); ABS Monocytes 0.9 10^3/ul (0-0.8); ABS Neutrophils 9.8 10^3/ul (1.5-7.7); Eosinophil % 0.1 %; Hematocrit 30 % (42-52); Hemoglobin 10.1 g/dL (14.0-18.0); Lymphocyte % 11.3 %; Mean Corpuscular Hemoglobin 33 pg (27-31); Mean Corpuscular Hgb Conc 34 g/dL (31-36); Mean Corpuscular Volume 96 fL (80-94); Mean Platelet Volume 10.9 fL (7.4-10.4); Nucleated Red Blood Cells % 0.1; Platelet Count 59 10^3/uL (150-450); Red Blood Count 3.07 10^6 /uL (4.18-5.48); Red Cell Distribution Width 15 % (10-15); White Blood Count 12.1 10^3/uL (3.5-10.8)
[2022-09-24 04:48] LABS: Calcium 8.6 mg/dL (8.6-10.3); Creatinine, Serum 2.28 mg/dL (0.67-1.17); Magnesium 2.3 mg/dL (1.9-2.7); Potassium 3.4 mmol/L (3.5-5.0); eGFR CKD-EPI 34.1 (>60)
[2022-09-24] MEDS: D5W 1000 ml BAG 1,000 ML IV SCH (05:20)
[2022-09-24] MEDS: KCL 20 MEQ/100 ML IVPREMIX 20 MEQ/100 ML BAG IV SCH ×2 (09:01→11:20)
[2022-09-24] MEDS: Senna TAB 8.6 mg TAB PO SCH (11:20)
[2022-09-25 03:37] LABS: ABS Lymphocytes 0.9 10^3/ul (1.0-4.8); ABS Monocytes 0.9 10^3/ul (0-0.8); ABS Neutrophils 11.3 10^3/ul (1.5-7.7); Eosinophil % 0.1 %; Hematocrit 31 % (42-52); Hemoglobin 10.7 g/dL (14.0-18.0); Lymphocyte % 6.6 %; Mean Corpuscular Hemoglobin 34 pg (27-31); Mean Corpuscular Hgb Conc 35 g/dL (31-36); Mean Corpuscular Volume 97 fL (80-94); Mean Platelet Volume 10.9 fL (7.4-10.4); Platelet Count 73 10^3/uL (150-450); Red Blood Count 3.17 10^6 /uL (4.18-5.48); Red Cell Distribution Width 17 % (10-15); White Blood Count 13.1 10^3/uL (3.5-10.8)
[2022-09-25 04:03] LABS: Calcium 8.6 mg/dL (8.6-10.3); Creatinine, Serum 2.26 mg/dL (0.67-1.17); Magnesium 2.1 mg/dL (1.9-2.7); Potassium 3.9 mmol/L (3.5-5.0); eGFR CKD-EPI 34.5 (>60)
[2022-09-25] MEDS: levETIRAcetam 1000MG IVPREMIX 1,000 MG/100 ML BAG IVPB SCH ×2 (04:07→16:06)
[2022-09-25] MEDS: Labetalol IV 5 MG/ML 20 ml VIAL IV PUSH PRN ×2 (05:10→22:54)
[2022-09-25] MEDS ORDERED: KCL 20 MEQ/100 ML IVPREMIX 20 MEQ/100 ML BAG IV ONE (07:33)
[2022-09-25] MEDS: Senna TAB 8.6 mg TAB PO SCH (08:41)
[2022-09-25] MEDS: Heparin 5000 UNITS/ML 1 mL VIAL SUBCUT SCH ×2 (13:15→23:04)
[2022-09-26] MEDS: Labetalol IV 5 MG/ML 20 ml VIAL IV PUSH PRN (02:49)
[2022-09-26] MEDS: levETIRAcetam 1000MG IVPREMIX 1,000 MG/100 ML BAG IVPB SCH ×2 (04:26→17:25)
[2022-09-26] MEDS: Heparin 5000 UNITS/ML 1 mL VIAL SUBCUT SCH ×3 (06:08→21:54)
[2022-09-26 06:26] LABS: ABS Monocytes 0.7 10^3/ul (0-0.8); ABS Neutrophils 8.2 10^3/ul (1.5-7.7); Eosinophil % 0.5 %; Hematocrit 26 % (42-52); Hemoglobin 9.4 g/dL (14.0-18.0); Lymphocyte % 10.3 %; Mean Corpuscular Hemoglobin 35 pg (27-31); Mean Corpuscular Hgb Conc 36 g/dL (31-36); Mean Corpuscular Volume 97 fL (80-94); Mean Platelet Volume 10.3 fL (7.4-10.4); Platelet Count 72 10^3/uL (150-450); Red Cell Distribution Width 18 % (10-15)
[2022-09-26 06:49] LABS: Calcium 8.5 mg/dL (8.6-10.3); Creatinine, Serum 2.05 mg/dL (0.67-1.17); Potassium 3.8 mmol/L (3.5-5.0); eGFR CKD-EPI 38.7 (>60)
[2022-09-26] MEDS: Senna TAB 8.6 mg TAB PO SCH (10:30)
[2022-09-27] MEDS: Heparin 5000 UNITS/ML 1 mL VIAL SUBCUT SCH ×3 (04:58→21:08)
[2022-09-27] MEDS: levETIRAcetam 1000MG IVPREMIX 1,000 MG/100 ML BAG IVPB SCH ×2 (04:58→16:31)
[2022-09-27] MEDS: Labetalol IV 5 MG/ML 20 ml VIAL IV PUSH PRN ×2 (05:36→22:40)
[2022-09-27 05:51] LABS: ABS Lymphocytes 0.7 10^3/ul (1.0-4.8); ABS Monocytes 0.8 10^3/ul (0-0.8); ABS Neutrophils 11.9 10^3/ul (1.5-7.7); Hematocrit 26 % (42-52); Lymphocyte % 5.4 %; Mean Corpuscular Hemoglobin 34 pg (27-31); Mean Corpuscular Hgb Conc 35 g/dL (31-36); Mean Corpuscular Volume 98 fL (80-94); Mean Platelet Volume 11.2 fL (7.4-10.4); Platelet Count 102 10^3/uL (150-450); Red Blood Count 2.63 10^6 /uL (4.18-5.48); Red Cell Distribution Width 18 % (10-15); White Blood Count 13.4 10^3/uL (3.5-10.8)
[2022-09-27 06:07] LABS: Calcium 8.3 mg/dL (8.6-10.3); Creatinine, Serum 2.24 mg/dL (0.67-1.17); Magnesium 2.1 mg/dL (1.9-2.7); Potassium 3.9 mmol/L (3.5-5.0); eGFR CKD-EPI 34.8 (>60)
[2022-09-27] MEDS: Senna TAB 8.6 mg TAB PO SCH (09:48)
[2022-09-28] MEDS: levETIRAcetam 1000MG IVPREMIX 1,000 MG/100 ML BAG IVPB SCH ×2 (05:17→15:51)
[2022-09-28] MEDS: Heparin 5000 UNITS/ML 1 mL VIAL SUBCUT SCH ×3 (05:21→21:47)
[2022-09-28 05:33] LABS: ABS Lymphocytes 0.6 10^3/ul (1.0-4.8); ABS Monocytes 0.9 10^3/ul (0-0.8); ABS Neutrophils 13.1 10^3/ul (1.5-7.7); Eosinophil % 0.1 %; Hematocrit 27 % (42-52); Hemoglobin 8.9 g/dL (14.0-18.0); Lymphocyte % 4.4 %; Mean Corpuscular Hemoglobin 32 pg (27-31); Mean Corpuscular Hgb Conc 34 g/dL (31-36); Mean Corpuscular Volume 96 fL (80-94); Mean Platelet Volume 10.7 fL (7.4-10.4); Nucleated Red Blood Cells % 0.1; Platelet Count 134 10^3/uL (150-450); Red Blood Count 2.77 10^6 /uL (4.18-5.48); Red Cell Distribution Width 18 % (10-15); White Blood Count 14.7 10^3/uL (3.5-10.8)
[2022-09-28] MEDS: hydrALAZINE 20 mg/ml 1 ML Vial IV IV SLOW PU PRN (05:38)
[2022-09-28 05:58] LABS: Calcium 8.6 mg/dL (8.6-10.3); Creatinine, Serum 1.97 mg/dL (0.67-1.17); Magnesium 1.9 mg/dL (1.9-2.7); Potassium 4.2 mmol/L (3.5-5.0); eGFR CKD-EPI 40.6 (>60)
[2022-09-28] MEDS: Senna TAB 8.6 mg TAB PO SCH (09:03)
[2022-09-29] MEDS: levETIRAcetam 1000MG IVPREMIX 1,000 MG/100 ML BAG IVPB SCH ×2 (04:10→15:43)
[2022-09-29] MEDS: Heparin 5000 UNITS/ML 1 mL VIAL SUBCUT SCH ×3 (05:20→22:30)
[2022-09-29 06:07] LABS: ABS Lymphocytes 1.1 10^3/ul (1.0-4.8); ABS Neutrophils 10.7 10^3/ul (1.5-7.7); Eosinophil % 0.2 %; Hematocrit 27 % (42-52); Hemoglobin 9.3 g/dL (14.0-18.0); Lymphocyte % 8.4 %; Mean Corpuscular Hemoglobin 34 pg (27-31); Mean Corpuscular Hgb Conc 34 g/dL (31-36); Mean Corpuscular Volume 98 fL (80-94); Mean Platelet Volume 10.5 fL (7.4-10.4); Platelet Count 146 10^3/uL (150-450); Red Blood Count 2.75 10^6 /uL (4.18-5.48); Red Cell Distribution Width 18 % (10-15); White Blood Count 12.7 10^3/uL (3.5-10.8)
[2022-09-29 06:29] LABS: Calcium 8.6 mg/dL (8.6-10.3); Creatinine, Serum 2.08 mg/dL (0.67-1.17); Magnesium 1.8 mg/dL (1.9-2.7); Potassium 4.3 mmol/L (3.5-5.0); eGFR CKD-EPI 38.1 (>60)
[2022-09-29] MEDS ORDERED: Magnesium Sulfate 2 gm BAG 2 GM/50 ML BAG IVPB ONE (07:15)
[2022-09-29] MEDS: Senna TAB 8.6 mg TAB PO SCH (08:44)
[2022-09-29] MEDS: Multivitamins ADULT w/MIN LIQ 15 ML UDC PO SCH (13:07)
[2022-09-29] MEDS: Thiamine 100 MG/ML 2 ml VIAL 500 MG in NS 0.9% 250 ml 250 ML IV SCH ×2 (15:51→22:30)
[2022-09-30] MEDS: levETIRAcetam 1000MG IVPREMIX 1,000 MG/100 ML BAG IVPB SCH ×2 (05:20→16:10)
[2022-09-30 05:32] LABS: ABS Lymphocytes 1.1 10^3/uL (1.0-4.8); ABS Monocytes 0.9 10^3/uL (0.0-1.1); ABS Neutrophils 9.3 10^3/uL (1.5-7.6); ABS Nucleated RBC 0.01 10^3/ul; Eosinophil % 0.2 %; Hematocrit 26.2 % (38-53); Hemoglobin 9.3 g/dL (13.2-16.3); Lymphocyte % 9.2 %; Mean Corpuscular Hemoglobin 34.4 pg (27-33); Mean Corpuscular Hgb Conc 35.3 g/dL (31-36); Mean Corpuscular Volume 97.5 fL (80-97); Mean Platelet Volume 9.8 fL (7.5-11.2); Nucleated Red Blood Cells % 0.1 /100 WBC (0.0-0.4); Platelet Count 158 10^3/uL (150-450); Red Blood Count 2.69 10^6/uL (4.06-5.63); Red Cell Distribution Width 18.5 % (12-17); White Blood Count 11.4 10^3/uL (3.6-10.2)
[2022-09-30 06:17] LABS: Calcium 8.3 mg/dL (8.6-10.3); Creatinine, Serum 2.41 mg/dL (0.67-1.17); Magnesium 2.5 mg/dL (1.9-2.7); Potassium 4.6 mmol/L (3.5-5.0); eGFR CKD-EPI 31.9 (>60)
[2022-09-30] MEDS: Thiamine 100 MG/ML 2 ml VIAL 500 MG in NS 0.9% 250 ml 250 ML IV SCH ×3 (06:24→22:09)
[2022-09-30] MEDS: Multivitamins ADULT w/MIN LIQ 15 ML UDC PO SCH (09:06)
[2022-09-30] MEDS: Heparin 5000 UNITS/ML 1 mL VIAL SUBCUT SCH ×3 (09:06→22:06)
[2022-09-30] MEDS: Senna TAB 8.6 mg TAB PO SCH (09:08)
[2022-10-01] MEDS: levETIRAcetam 1000MG IVPREMIX 1,000 MG/100 ML BAG IVPB SCH ×2 (05:11→16:12)
[2022-10-01] MEDS: Thiamine 100 MG/ML 2 ml VIAL 500 MG in NS 0.9% 250 ml 250 ML IV SCH ×3 (06:03→21:35)
[2022-10-01 06:12] LABS: ABS Lymphocytes 1.1 10^3/uL (1.0-4.8); ABS Monocytes 0.6 10^3/uL (0.0-1.1); ABS Neutrophils 6.6 10^3/uL (1.5-7.6); ABS Nucleated RBC 0.01 10^3/ul; Eosinophil % 0.4 %; Hematocrit 24.5 % (38-53); Hemoglobin 8.6 g/dL (13.2-16.3); Lymphocyte % 13.4 %; Mean Corpuscular Hemoglobin 33.7 pg (27-33); Mean Corpuscular Hgb Conc 34.9 g/dL (31-36); Mean Corpuscular Volume 96.6 fL (80-97); Mean Platelet Volume 9.2 fL (7.5-11.2); Nucleated Red Blood Cells % 0.1 /100 WBC (0.0-0.4); Platelet Count 148 10^3/uL (150-450); Red Blood Count 2.53 10^6/uL (4.06-5.63); Red Cell Distribution Width 18.9 % (12-17); White Blood Count 8.4 10^3/uL (3.6-10.2)
[2022-10-01] MEDS: Heparin 5000 UNITS/ML 1 mL VIAL SUBCUT SCH ×3 (06:23→21:35)
[2022-10-01 07:08] LABS: Calcium 8.3 mg/dL (8.6-10.3); Creatinine, Serum 2.45 mg/dL (0.67-1.17); Magnesium 1.9 mg/dL (1.9-2.7); Potassium 4.4 mmol/L (3.5-5.0); eGFR CKD-EPI 31.3 (>60)
[2022-10-01] MEDS: Multivitamins ADULT w/MIN LIQ 15 ML UDC PO SCH (08:40)
[2022-10-01] MEDS: Senna TAB 8.6 mg TAB PO SCH (08:41)
[2022-10-02] MEDS: levETIRAcetam 1000MG IVPREMIX 1,000 MG/100 ML BAG IVPB SCH ×2 (04:28→16:06)
[2022-10-02] MEDS: Thiamine 100 MG/ML 2 ml VIAL 500 MG in NS 0.9% 250 ml 250 ML IV SCH ×3 (05:19→20:38)
[2022-10-02] MEDS: Heparin 5000 UNITS/ML 1 mL VIAL SUBCUT SCH ×3 (05:22→20:44)
[2022-10-02 06:18] LABS: Calcium 8.7 mg/dL (8.6-10.3); Creatinine, Serum 2.31 mg/dL (0.67-1.17); Potassium 4.3 mmol/L (3.5-5.0); eGFR CKD-EPI 33.6 (>60)
[2022-10-02] MEDS: Multivitamins ADULT w/MIN LIQ 15 ML UDC PO SCH (10:17)
[2022-10-02] MEDS: Senna TAB 8.6 mg TAB PO SCH (10:17)
[2022-10-02 18:11] LABS: Calcium 8.8 mg/dL (8.6-10.3); Creatinine, Serum 2.36 mg/dL (0.67-1.17); Potassium 5.6 mmol/L (3.5-5.0); eGFR CKD-EPI 32.7 (>60)
[2022-10-03] MEDS: levETIRAcetam 1000MG IVPREMIX 1,000 MG/100 ML BAG IVPB SCH ×2 (05:02→16:31)
[2022-10-03] MEDS: Heparin 5000 UNITS/ML 1 mL VIAL SUBCUT SCH ×3 (05:02→22:55)
[2022-10-03 05:18] LABS: Calcium 8.6 mg/dL (8.6-10.3); Creatinine, Serum 2.31 mg/dL (0.67-1.17); Potassium 4.3 mmol/L (3.5-5.0); eGFR CKD-EPI 33.6 (>60)
[2022-10-03] MEDS: Thiamine 100 MG/ML 2 ml VIAL 500 MG in NS 0.9% 250 ml 250 ML IV SCH ×2 (05:23→13:50)
[2022-10-03] MEDS: Multivitamins ADULT w/MIN LIQ 15 ML UDC PO SCH (08:42)
[2022-10-03] MEDS: Senna TAB 8.6 mg TAB PO SCH (08:42)
[2022-10-03] MEDS ORDERED: hydrALAZINE 20 mg/ml 1 ML Vial IV IV SLOW PU PRN (10:36)
[2022-10-03 22:23] LABS: Magnesium 1.8 mg/dL (1.9-2.7); Phosphorus 3.1 mg/dL (2.5-5.0)
[2022-10-04] MEDS: Heparin 5000 UNITS/ML 1 mL VIAL SUBCUT SCH ×3 (05:06→20:39)
[2022-10-04] MEDS: levETIRAcetam 1000MG IVPREMIX 1,000 MG/100 ML BAG IVPB SCH ×2 (05:06→17:01)
[2022-10-04] MEDS: Multivitamins ADULT w/MIN LIQ 15 ML UDC PO SCH (08:47)
[2022-10-04] MEDS: Senna TAB 8.6 mg TAB PO SCH (08:48)
[2022-10-05] MEDS: levETIRAcetam 1000MG IVPREMIX 1,000 MG/100 ML BAG IVPB SCH ×2 (04:08→16:07)
[2022-10-05] MEDS: Heparin 5000 UNITS/ML 1 mL VIAL SUBCUT SCH ×3 (05:27→20:41)
[2022-10-05 06:10] LABS: Calcium 8.9 mg/dL (8.6-10.3); Creatinine, Serum 2.13 mg/dL (0.67-1.17); Potassium 4.5 mmol/L (3.5-5.0)
[2022-10-05 07:53] LABS: Magnesium 1.7 mg/dL (1.9-2.7)
[2022-10-05] MEDS ORDERED: Magnesium Sulfate IV 3 GM in NS 0.9% 100 ml BAG 100 ML IVPB ONE (08:25)
[2022-10-05] MEDS: Senna TAB 8.6 mg TAB PO SCH (09:29)
[2022-10-05] MEDS: Multivitamins ADULT w/MIN LIQ 15 ML UDC PO SCH ×2 (09:29→09:54)
[2022-10-06] MEDS: levETIRAcetam 1000MG IVPREMIX 1,000 MG/100 ML BAG IVPB SCH (04:15)
[2022-10-06] MEDS: Heparin 5000 UNITS/ML 1 mL VIAL SUBCUT SCH ×3 (06:23→22:46)
[2022-10-06 07:10] LABS: Calcium 9.2 mg/dL (8.6-10.3); Creatinine, Serum 2.12 mg/dL (0.67-1.17); Magnesium 2.3 mg/dL (1.9-2.7); Potassium 4.9 mmol/L (3.5-5.0); eGFR CKD-EPI 37.2 (>60)
[2022-10-06] MEDS: Senna TAB 8.6 mg TAB PO SCH (10:03)
[2022-10-06] MEDS: Multivitamins ADULT w/MIN LIQ 15 ML UDC PO SCH (10:03)
[2022-10-07] MEDS: Heparin 5000 UNITS/ML 1 mL VIAL SUBCUT SCH ×3 (05:25→20:59)
[2022-10-07] MEDS: Senna TAB 8.6 mg TAB PO SCH (08:58)
[2022-10-07] MEDS: Multivitamins/Minerals TAB PO SCH (08:58)
[2022-10-08] MEDS: Heparin 5000 UNITS/ML 1 mL VIAL SUBCUT SCH ×3 (05:31→20:01)
[2022-10-08] MEDS: Multivitamins/Minerals TAB PO SCH (10:04)
[2022-10-08] MEDS: Senna TAB 8.6 mg TAB PO SCH (10:04)
[2022-10-09] MEDS: Heparin 5000 UNITS/ML 1 mL VIAL SUBCUT SCH ×3 (05:30→21:05)
[2022-10-09 05:41] LABS: ABS Basophils 0.1 10^3/uL (0.0-0.1); ABS Eosinophils 0.1 10^3/uL (0.0-0.5); ABS Lymphocytes 0.9 10^3/uL (1.0-4.8); ABS Monocytes 0.7 10^3/uL (0.0-1.1); ABS Neutrophils 5.4 10^3/uL (1.5-7.6); Eosinophil % 1.3 %; Hematocrit 33.3 % (38-53); Hemoglobin 11.6 g/dL (13.2-16.3); Lymphocyte % 12.7 %; Mean Corpuscular Hemoglobin 34.8 pg (27-33); Mean Corpuscular Hgb Conc 34.8 g/dL (31-36); Mean Platelet Volume 8.8 fL (7.5-11.2); Platelet Count 161 10^3/uL (150-450); Red Blood Count 3.33 10^6/uL (4.06-5.63); Red Cell Distribution Width 17.4 % (12-17); White Blood Count 7.2 10^3/uL (3.6-10.2)
[2022-10-09 06:20] LABS: Calcium 8.5 mg/dL (8.6-10.3); Creatinine, Serum 3.06 mg/dL (0.67-1.17); Magnesium 2.2 mg/dL (1.9-2.7); Potassium 4.9 mmol/L (3.5-5.0)
[2022-10-09] MEDS: Multivitamins/Minerals TAB PO SCH (08:50)
[2022-10-09] MEDS: Senna TAB 8.6 mg TAB PO SCH (09:12)
[2022-10-10] MEDS: Heparin 5000 UNITS/ML 1 mL VIAL SUBCUT SCH ×3 (05:33→22:34)
[2022-10-10 06:17] LABS: Hematocrit 35.1 % (38-53); Hemoglobin 12.1 g/dL (13.2-16.3); Mean Corpuscular Hemoglobin 34.2 pg (27-33); Mean Corpuscular Hgb Conc 34.4 g/dL (31-36); Mean Corpuscular Volume 99.4 fL (80-97); Mean Platelet Volume 8.6 fL (7.5-11.2); Platelet Count 149 10^3/uL (150-450); Red Blood Count 3.53 10^6/uL (4.06-5.63); Red Cell Distribution Width 16.7 % (12-17); White Blood Count 6.6 10^3/uL (3.6-10.2)
[2022-10-10 06:59] LABS: Calcium 8.9 mg/dL (8.6-10.3); eGFR CKD-EPI 24.5 (>60)
[2022-10-10] MEDS: Multivitamins/Minerals TAB PO SCH (09:17)
[2022-10-10] MEDS: Senna TAB 8.6 mg TAB PO SCH (10:25)
[2022-10-11] MEDS: Heparin 5000 UNITS/ML 1 mL VIAL SUBCUT SCH ×3 (05:27→21:56)
[2022-10-11 05:50] LABS: Hematocrit 33.8 % (38-53); Hemoglobin 11.6 g/dL (13.2-16.3); Mean Corpuscular Hemoglobin 33.5 pg (27-33); Mean Corpuscular Hgb Conc 34.4 g/dL (31-36); Mean Corpuscular Volume 97.5 fL (80-97); Mean Platelet Volume 8.4 fL (7.5-11.2); Platelet Count 158 10^3/uL (150-450); Red Blood Count 3.46 10^6/uL (4.06-5.63); Red Cell Distribution Width 16.9 % (12-17); White Blood Count 6.8 10^3/uL (3.6-10.2)
[2022-10-11 06:27] LABS: Calcium 9.1 mg/dL (8.6-10.3); Creatinine, Serum 2.53 mg/dL (0.67-1.17); Potassium 4.6 mmol/L (3.5-5.0); eGFR CKD-EPI 30.1 (>60)
[2022-10-11] MEDS: Senna TAB 8.6 mg TAB PO SCH (09:57)
[2022-10-11] MEDS: Multivitamins/Minerals TAB PO SCH (09:58)
[2022-10-11] MEDS: Polyethylene Glycol 3350 17 GM PACKET PO PRN (13:01)
[2022-10-12] MEDS: Heparin 5000 UNITS/ML 1 mL VIAL SUBCUT SCH ×3 (05:10→20:22)
[2022-10-12 05:27] LABS: Hematocrit 32.8 % (38-53); Hemoglobin 11.4 g/dL (13.2-16.3); Mean Corpuscular Hemoglobin 33.6 pg (27-33); Mean Corpuscular Hgb Conc 34.6 g/dL (31-36); Mean Platelet Volume 8.4 fL (7.5-11.2); Platelet Count 156 10^3/uL (150-450); Red Blood Count 3.38 10^6/uL (4.06-5.63); Red Cell Distribution Width 16.5 % (12-17); White Blood Count 6.3 10^3/uL (3.6-10.2)
[2022-10-12 06:09] LABS: Calcium 9.1 mg/dL (8.6-10.3); Creatinine, Serum 2.38 mg/dL (0.67-1.17); Potassium 4.2 mmol/L (3.5-5.0); eGFR CKD-EPI 32.4 (>60)
[2022-10-12] MEDS: Senna TAB 8.6 mg TAB PO SCH (11:14)
[2022-10-12] MEDS: Multivitamins/Minerals TAB PO SCH (11:16)
[2022-10-13] MEDS: Heparin 5000 UNITS/ML 1 mL VIAL SUBCUT SCH ×3 (05:11→20:14)
[2022-10-13 06:01] LABS: Calcium 9.1 mg/dL (8.6-10.3); Creatinine, Serum 2.09 mg/dL (0.67-1.17); eGFR CKD-EPI 37.9 (>60)
[2022-10-13] MEDS: Multivitamins/Minerals TAB PO SCH (10:24)
[2022-10-13] MEDS: Senna TAB 8.6 mg TAB PO SCH (10:25)
[2022-10-14] MEDS: Heparin 5000 UNITS/ML 1 mL VIAL SUBCUT SCH ×3 (06:10→20:53)
[2022-10-14] MEDS: Multivitamins/Minerals TAB PO SCH (09:50)
[2022-10-14] MEDS: Senna TAB 8.6 mg TAB PO SCH (09:51)
[2022-10-15] MEDS: Heparin 5000 UNITS/ML 1 mL VIAL SUBCUT SCH ×3 (06:13→21:49)
[2022-10-15] MEDS: Senna TAB 8.6 mg TAB PO SCH (10:28)
[2022-10-15] MEDS: Multivitamins/Minerals TAB PO SCH (10:30)
[2022-10-16] MEDS: Heparin 5000 UNITS/ML 1 mL VIAL SUBCUT SCH ×3 (05:52→20:53)
[2022-10-16] MEDS: Multivitamins/Minerals TAB PO SCH (09:28)
[2022-10-16] MEDS: Senna TAB 8.6 mg TAB PO SCH (09:28)
[2022-10-16 18:10] LABS: ANNA-1, S Negative (Negative); ANNA-2, S Negative (Negative); DPPX Ab IFA, S Negative (Negative); GFAP IFA, S Negative (Negative); IFA Notes None.; NIF IFA, S Negative (Negative); Neurochondrin IFA, S Negative (Negative); mGluR1 Ab IFA, S Negative (Negative)
[2022-10-17] MEDS: Heparin 5000 UNITS/ML 1 mL VIAL SUBCUT SCH ×3 (06:16→20:21)
[2022-10-17] MEDS ORDERED: hydrALAZINE 20 mg/ml 1 ML Vial IV IV SLOW PU ONE (07:28)
[2022-10-17] MEDS: Multivitamins/Minerals TAB PO SCH (09:32)
[2022-10-17] MEDS: Senna TAB 8.6 mg TAB PO SCH (09:32)
[2022-10-18] MEDS: Heparin 5000 UNITS/ML 1 mL VIAL SUBCUT SCH ×3 (05:37→21:26)
[2022-10-18] MEDS: Senna TAB 8.6 mg TAB PO SCH (08:57)
[2022-10-18] MEDS: Polyethylene Glycol 3350 17 GM PACKET PO PRN (08:57)
[2022-10-18] MEDS: Docusate LIQ 100 MG/10 ML UDC PO PRN (08:57)
[2022-10-18] MEDS: Multivitamins/Minerals TAB PO SCH (08:59)
[2022-10-19] MEDS: Heparin 5000 UNITS/ML 1 mL VIAL SUBCUT SCH ×3 (05:30→21:09)
[2022-10-19 05:52] LABS: ABS Eosinophils 0.1 10^3/uL (0.0-0.5); ABS Lymphocytes 1.2 10^3/uL (1.0-4.8); ABS Monocytes 0.6 10^3/uL (0.0-1.1); ABS Neutrophils 6.4 10^3/uL (1.5-7.6); ABS Nucleated RBC 0.01 10^3/ul; Eosinophil % 0.9 %; Hematocrit 34.6 % (38-53); Hemoglobin 12.1 g/dL (13.2-16.3); Lymphocyte % 14.6 %; Mean Corpuscular Hemoglobin 33.5 pg (27-33); Mean Corpuscular Hgb Conc 34.9 g/dL (31-36); Mean Corpuscular Volume 96.2 fL (80-97); Mean Platelet Volume 6.9 fL (7.5-11.2); Nucleated Red Blood Cells % 0.1 /100 WBC (0.0-0.4); Platelet Count 186 10^3/uL (150-450); Red Cell Distribution Width 16.5 % (12-17); White Blood Count 8.3 10^3/uL (3.6-10.2)
[2022-10-19 06:25] LABS: Calcium 9.5 mg/dL (8.6-10.3); Creatinine, Serum 1.93 mg/dL (0.67-1.17); Potassium 4.1 mmol/L (3.5-5.0); eGFR CKD-EPI 41.7 (>60)
[2022-10-19] MEDS: Multivitamins/Minerals TAB PO SCH (10:03)
[2022-10-19] MEDS: Senna TAB 8.6 mg TAB PO SCH (10:04)
[2022-10-19 18:23] LABS: Phosphorus 5.1 mg/dL (2.5-5.0)
[2022-10-20] MEDS: Heparin 5000 UNITS/ML 1 mL VIAL SUBCUT SCH ×3 (06:02→21:45)
[2022-10-20] MEDS: Multivitamins/Minerals TAB PO SCH (09:42)
[2022-10-20] MEDS: Senna TAB 8.6 mg TAB PO SCH ×3 (09:42→21:45)
[2022-10-20] MEDS ORDERED: Glycerin ADULT 2.4 gm SUPP PR ONE (15:04)
[2022-10-20] MEDS: Magnesium Hydroxide LIQ 30 ML UDC PO SCH (21:45)
[2022-10-21] MEDS: Heparin 5000 UNITS/ML 1 mL VIAL SUBCUT SCH ×3 (05:37→22:29)
[2022-10-21] MEDS: Multivitamins/Minerals TAB PO SCH (09:35)
[2022-10-21] MEDS: Senna TAB 8.6 mg TAB PO SCH ×2 (09:36→22:30)
[2022-10-21] MEDS: Magnesium Hydroxide LIQ 30 ML UDC PO SCH ×2 (10:21→22:30)
[2022-10-22] MEDS: Heparin 5000 UNITS/ML 1 mL VIAL SUBCUT SCH ×4 (05:56→23:11)
[2022-10-22] MEDS: Senna TAB 8.6 mg TAB PO SCH ×2 (08:46→20:33)
[2022-10-22] MEDS: Multivitamins/Minerals TAB PO SCH (08:47)
[2022-10-22] MEDS: Magnesium Hydroxide LIQ 30 ML UDC PO SCH ×2 (08:47→20:33)
[2022-10-23] MEDS: Heparin 5000 UNITS/ML 1 mL VIAL SUBCUT SCH ×3 (05:27→20:50)
[2022-10-23] MEDS: Multivitamins/Minerals TAB PO SCH (09:01)
[2022-10-23] MEDS: Senna TAB 8.6 mg TAB PO SCH ×2 (09:02→20:49)
[2022-10-23] MEDS: Magnesium Hydroxide LIQ 30 ML UDC PO SCH ×2 (09:02→20:49)
[2022-10-23 13:17] LABS: C-ANCA Negative (Negative); P-ANCA Negative (Negative)
[2022-10-24] MEDS: Heparin 5000 UNITS/ML 1 mL VIAL SUBCUT SCH ×3 (06:12→20:58)
[2022-10-24] MEDS: Multivitamins/Minerals TAB PO SCH (10:38)
[2022-10-24] MEDS: Senna TAB 8.6 mg TAB PO SCH ×2 (10:38→20:59)
[2022-10-24] MEDS: Magnesium Hydroxide LIQ 30 ML UDC PO SCH ×2 (10:59→23:44)
[2022-10-24] MEDS: Polyethylene Glycol 3350 17 GM PACKET PO SCH (23:44)
[2022-10-25] MEDS: Heparin 5000 UNITS/ML 1 mL VIAL SUBCUT SCH ×3 (05:45→20:38)
[2022-10-25] MEDS: Senna TAB 8.6 mg TAB PO SCH ×2 (10:42→20:56)
[2022-10-25] MEDS: Multivitamins/Minerals TAB PO SCH (10:42)
[2022-10-25] MEDS: Magnesium Hydroxide LIQ 30 ML UDC PO SCH ×2 (10:48→20:37)
[2022-10-25] MEDS: Polyethylene Glycol 3350 17 GM PACKET PO SCH (10:48)
[2022-10-26] MEDS: Heparin 5000 UNITS/ML 1 mL VIAL SUBCUT SCH ×3 (04:49→20:17)
[2022-10-26 05:30] LABS: ABS Basophils 0.1 10^3/uL (0.0-0.1); ABS Eosinophils 0.1 10^3/uL (0.0-0.5); ABS Monocytes 0.8 10^3/uL (0.0-1.1); ABS Neutrophils 5.9 10^3/uL (1.5-7.6); ABS Nucleated RBC 0.02 10^3/ul; Eosinophil % 1.2 %; Hematocrit 33.1 % (38-53); Hemoglobin 11.7 g/dL (13.2-16.3); Lymphocyte % 12.8 %; Mean Corpuscular Hemoglobin 33.8 pg (27-33); Mean Corpuscular Hgb Conc 35.3 g/dL (31-36); Mean Corpuscular Volume 95.7 fL (80-97); Mean Platelet Volume 7.6 fL (7.5-11.2); Nucleated Red Blood Cells % 0.2 /100 WBC (0.0-0.4); Platelet Count 204 10^3/uL (150-450); Red Blood Count 3.45 10^6/uL (4.06-5.63); White Blood Count 7.9 10^3/uL (3.6-10.2)
[2022-10-26 06:14] LABS: Calcium 8.6 mg/dL (8.6-10.3); Creatinine, Serum 1.64 mg/dL (0.67-1.17); Potassium 3.7 mmol/L (3.5-5.0); eGFR CKD-EPI 50.3 (>60)
[2022-10-26] MEDS: Multivitamins/Minerals TAB PO SCH (10:28)
[2022-10-26] MEDS: Senna TAB 8.6 mg TAB PO SCH ×2 (10:28→21:17)
[2022-10-26] MEDS: Magnesium Hydroxide LIQ 30 ML UDC PO SCH ×2 (11:05→20:17)
[2022-10-26] MEDS: Polyethylene Glycol 3350 17 GM PACKET PO SCH (11:05)
[2022-10-27] MEDS: Heparin 5000 UNITS/ML 1 mL VIAL SUBCUT SCH (06:14)
[2022-10-27] MEDS: Senna TAB 8.6 mg TAB PO SCH ×2 (07:47→20:18)
[2022-10-27] MEDS: Enoxaparin 40 MG/0.4 ML SYR SUBCUT SCH ×2 (07:47→07:51)
[2022-10-27] MEDS: Multivitamins/Minerals TAB PO SCH (07:47)
[2022-10-27] MEDS: Polyethylene Glycol 3350 17 GM PACKET PO SCH (07:48)
[2022-10-27] MEDS: Magnesium Hydroxide LIQ 30 ML UDC PO SCH ×2 (07:48→20:20)
[2022-10-28] MEDS: Multivitamins/Minerals TAB PO SCH (08:30)
[2022-10-28] MEDS: Senna TAB 8.6 mg TAB PO SCH ×2 (08:31→20:22)
[2022-10-28] MEDS: Enoxaparin 40 MG/0.4 ML SYR SUBCUT SCH (08:34)
[2022-10-28] MEDS: Polyethylene Glycol 3350 17 GM PACKET PO SCH (08:34)
[2022-10-28] MEDS: Magnesium Hydroxide LIQ 30 ML UDC PO SCH ×2 (08:34→20:25)
[2022-10-29] MEDS: Enoxaparin 40 MG/0.4 ML SYR SUBCUT SCH (07:23)
[2022-10-29] MEDS: Magnesium Hydroxide LIQ 30 ML UDC PO SCH ×2 (07:24→21:42)
[2022-10-29] MEDS: Polyethylene Glycol 3350 17 GM PACKET PO SCH (07:24)
[2022-10-29] MEDS: Senna TAB 8.6 mg TAB PO SCH ×2 (09:05→21:41)
[2022-10-29] MEDS: Multivitamins/Minerals TAB PO SCH (09:05)
[2022-10-30] MEDS: Enoxaparin 40 MG/0.4 ML SYR SUBCUT SCH (10:03)
[2022-10-30] MEDS: Polyethylene Glycol 3350 17 GM PACKET PO SCH (10:13)
[2022-10-30] MEDS: Senna TAB 8.6 mg TAB PO SCH ×2 (10:16→21:10)
[2022-10-30] MEDS: Multivitamins/Minerals TAB PO SCH (10:16)
[2022-10-30] MEDS: Magnesium Hydroxide LIQ 30 ML UDC PO SCH ×2 (10:16→19:19)
[2022-10-31] MEDS: Multivitamins/Minerals TAB PO SCH (09:11)
[2022-10-31] MEDS: Senna TAB 8.6 mg TAB PO SCH ×2 (09:12→19:47)
[2022-10-31] MEDS: Polyethylene Glycol 3350 17 GM PACKET PO SCH (09:12)
[2022-10-31] MEDS: Magnesium Hydroxide LIQ 30 ML UDC PO SCH ×2 (09:13→19:34)
[2022-10-31] MEDS: Enoxaparin 40 MG/0.4 ML SYR SUBCUT SCH (09:17)
[2022-11-01] MEDS: Polyethylene Glycol 3350 17 GM PACKET PO SCH (07:51)
[2022-11-01] MEDS: Enoxaparin 40 MG/0.4 ML SYR SUBCUT SCH (07:51)
[2022-11-01] MEDS: Magnesium Hydroxide LIQ 30 ML UDC PO SCH ×2 (07:51→19:54)
[2022-11-01] MEDS: Senna TAB 8.6 mg TAB PO SCH ×2 (09:46→19:53)
[2022-11-01] MEDS: Multivitamins/Minerals TAB PO SCH (09:47)
[2022-11-02] MEDS: Polyethylene Glycol 3350 17 GM PACKET PO SCH (10:10)
[2022-11-02] MEDS: Magnesium Hydroxide LIQ 30 ML UDC PO SCH ×2 (10:11→20:50)
[2022-11-02] MEDS: Multivitamins/Minerals TAB PO SCH (10:11)
[2022-11-02] MEDS: Senna TAB 8.6 mg TAB PO SCH ×2 (10:11→20:50)
[2022-11-02] MEDS: Enoxaparin 40 MG/0.4 ML SYR SUBCUT SCH (10:12)
[2022-11-03] MEDS: Polyethylene Glycol 3350 17 GM PACKET PO SCH (09:35)
[2022-11-03] MEDS: Enoxaparin 40 MG/0.4 ML SYR SUBCUT SCH (09:36)
[2022-11-03] MEDS: Magnesium Hydroxide LIQ 30 ML UDC PO SCH ×2 (09:36→20:09)
[2022-11-03] MEDS: Senna TAB 8.6 mg TAB PO SCH ×2 (09:36→20:09)
[2022-11-03] MEDS: Multivitamins/Minerals TAB PO SCH (09:36)
[2022-11-04] MEDS: Senna TAB 8.6 mg TAB PO SCH ×2 (08:03→21:09)
[2022-11-04] MEDS: Multivitamins/Minerals TAB PO SCH (08:03)
[2022-11-04] MEDS: Polyethylene Glycol 3350 17 GM PACKET PO SCH (08:16)
[2022-11-04] MEDS: Enoxaparin 40 MG/0.4 ML SYR SUBCUT SCH (08:16)
[2022-11-04] MEDS: Magnesium Hydroxide LIQ 30 ML UDC PO SCH ×2 (08:16→21:09)
[2022-11-05] MEDS: Enoxaparin 40 MG/0.4 ML SYR SUBCUT SCH (08:35)
[2022-11-05] MEDS: Senna TAB 8.6 mg TAB PO SCH ×3 (08:36→21:28)
[2022-11-05] MEDS: Polyethylene Glycol 3350 17 GM PACKET PO SCH (08:37)
[2022-11-05] MEDS: Magnesium Hydroxide LIQ 30 ML UDC PO SCH ×2 (08:37→21:29)
[2022-11-05] MEDS: Multivitamins/Minerals TAB PO SCH (08:54)
[2022-11-06] MEDS: Polyethylene Glycol 3350 17 GM PACKET PO SCH (10:33)
[2022-11-06] MEDS: Enoxaparin 40 MG/0.4 ML SYR SUBCUT SCH (10:33)
[2022-11-06] MEDS: Magnesium Hydroxide LIQ 30 ML UDC PO SCH ×2 (10:33→20:51)
[2022-11-06] MEDS: Multivitamins/Minerals TAB PO SCH (10:34)
[2022-11-06] MEDS: Senna TAB 8.6 mg TAB PO SCH ×2 (10:34→20:51)
[2022-11-07] MEDS: Multivitamins/Minerals TAB PO SCH (08:11)
[2022-11-07] MEDS: Enoxaparin 40 MG/0.4 ML SYR SUBCUT SCH (08:17)
[2022-11-07] MEDS: Magnesium Hydroxide LIQ 30 ML UDC PO SCH ×2 (08:18→19:46)
[2022-11-07] MEDS: Senna TAB 8.6 mg TAB PO SCH ×2 (08:18→19:46)
[2022-11-07] MEDS: Polyethylene Glycol 3350 17 GM PACKET PO SCH (08:18)
[2022-11-08] MEDS: Enoxaparin 40 MG/0.4 ML SYR SUBCUT SCH (07:31)
[2022-11-08] MEDS: Senna TAB 8.6 mg TAB PO SCH ×2 (07:32→20:02)
[2022-11-08] MEDS: Polyethylene Glycol 3350 17 GM PACKET PO SCH (07:32)
[2022-11-08] MEDS: Magnesium Hydroxide LIQ 30 ML UDC PO SCH ×2 (07:32→20:01)
[2022-11-08] MEDS: Multivitamins/Minerals TAB PO SCH (08:14)
[2022-11-09] MEDS: Enoxaparin 40 MG/0.4 ML SYR SUBCUT SCH (07:51)
[2022-11-09] MEDS: Polyethylene Glycol 3350 17 GM PACKET PO SCH (07:52)
[2022-11-09] MEDS: Magnesium Hydroxide LIQ 30 ML UDC PO SCH ×2 (07:52→21:23)
[2022-11-09] MEDS: Multivitamins/Minerals TAB PO SCH (09:18)
[2022-11-09] MEDS: Senna TAB 8.6 mg TAB PO SCH ×2 (09:18→21:23)
[2022-11-10] MEDS: Enoxaparin 40 MG/0.4 ML SYR SUBCUT SCH (07:53)
[2022-11-10] MEDS: Magnesium Hydroxide LIQ 30 ML UDC PO SCH ×2 (09:36→22:19)
[2022-11-10] MEDS: Multivitamins/Minerals TAB PO SCH (09:36)
[2022-11-10] MEDS: Senna TAB 8.6 mg TAB PO SCH ×2 (09:37→22:19)
[2022-11-10] MEDS: Polyethylene Glycol 3350 17 GM PACKET PO SCH (09:37)
[2022-11-11] MEDS: Polyethylene Glycol 3350 17 GM PACKET PO SCH (08:57)
[2022-11-11] MEDS: Enoxaparin 40 MG/0.4 ML SYR SUBCUT SCH (08:57)
[2022-11-11] MEDS: Multivitamins/Minerals TAB PO SCH (08:57)
[2022-11-11] MEDS: Senna TAB 8.6 mg TAB PO SCH ×2 (08:57→20:13)
[2022-11-11] MEDS: Magnesium Hydroxide LIQ 30 ML UDC PO SCH ×2 (08:58→20:13)
[2022-11-12] MEDS: Multivitamins/Minerals TAB PO SCH (08:08)
[2022-11-12] MEDS: Polyethylene Glycol 3350 17 GM PACKET PO SCH (08:08)
[2022-11-12] MEDS: Magnesium Hydroxide LIQ 30 ML UDC PO SCH ×2 (08:08→20:55)
[2022-11-12] MEDS: Senna TAB 8.6 mg TAB PO SCH ×2 (08:08→20:55)
[2022-11-12] MEDS: Enoxaparin 40 MG/0.4 ML SYR SUBCUT SCH (08:08)
[2022-11-13] MEDS: Enoxaparin 40 MG/0.4 ML SYR SUBCUT SCH (09:00)
[2022-11-13] MEDS: Magnesium Hydroxide LIQ 30 ML UDC PO SCH ×2 (09:01→23:00)
[2022-11-13] MEDS: Polyethylene Glycol 3350 17 GM PACKET PO SCH (09:01)
[2022-11-13] MEDS: Multivitamins/Minerals TAB PO SCH (09:01)
[2022-11-13] MEDS: Senna TAB 8.6 mg TAB PO SCH ×2 (09:01→23:00)
[2022-11-14] MEDS: Enoxaparin 40 MG/0.4 ML SYR SUBCUT SCH (07:13)
[2022-11-14] MEDS: Senna TAB 8.6 mg TAB PO SCH ×2 (07:14→22:02)
[2022-11-14] MEDS: Magnesium Hydroxide LIQ 30 ML UDC PO SCH ×2 (07:14→22:03)
[2022-11-14] MEDS: Polyethylene Glycol 3350 17 GM PACKET PO SCH (07:14)
[2022-11-14] MEDS: Multivitamins/Minerals TAB PO SCH (08:02)
[2022-11-15] MEDS: Enoxaparin 40 MG/0.4 ML SYR SUBCUT SCH (07:43)
[2022-11-15] MEDS: Magnesium Hydroxide LIQ 30 ML UDC PO SCH ×2 (07:43→20:56)
[2022-11-15] MEDS: Polyethylene Glycol 3350 17 GM PACKET PO SCH (07:43)
[2022-11-15] MEDS: Senna TAB 8.6 mg TAB PO SCH ×2 (07:44→20:56)
[2022-11-15] MEDS: Multivitamins/Minerals TAB PO SCH (08:27)
[2022-11-16] MEDS: Enoxaparin 40 MG/0.4 ML SYR SUBCUT SCH (07:21)
[2022-11-16] MEDS: Magnesium Hydroxide LIQ 30 ML UDC PO SCH ×2 (07:22→23:21)
[2022-11-16] MEDS: Polyethylene Glycol 3350 17 GM PACKET PO SCH (07:22)
[2022-11-16] MEDS: Senna TAB 8.6 mg TAB PO SCH ×2 (07:57→23:21)
[2022-11-16] MEDS: Multivitamins/Minerals TAB PO SCH (08:10)
[2022-11-17] MEDS: Enoxaparin 40 MG/0.4 ML SYR SUBCUT SCH (07:46)
[2022-11-17] MEDS: Polyethylene Glycol 3350 17 GM PACKET PO SCH (09:20)
[2022-11-17] MEDS: Magnesium Hydroxide LIQ 30 ML UDC PO SCH ×2 (09:20→20:58)
[2022-11-17] MEDS: Senna TAB 8.6 mg TAB PO SCH ×2 (09:20→20:54)
[2022-11-17] MEDS: Multivitamins/Minerals TAB PO SCH (09:20)
[2022-11-18] MEDS: Senna TAB 8.6 mg TAB PO SCH ×2 (09:12→21:15)
[2022-11-18] MEDS: Enoxaparin 40 MG/0.4 ML SYR SUBCUT SCH (09:13)
[2022-11-18] MEDS: Multivitamins/Minerals TAB PO SCH (09:13)
[2022-11-18] MEDS: Magnesium Hydroxide LIQ 30 ML UDC PO SCH ×2 (09:13→21:15)
[2022-11-18] MEDS: Polyethylene Glycol 3350 17 GM PACKET PO SCH (09:14)
[2022-11-19] MEDS: Magnesium Hydroxide LIQ 30 ML UDC PO SCH (08:02)
[2022-11-19] MEDS: Enoxaparin 40 MG/0.4 ML SYR SUBCUT SCH (08:02)
[2022-11-19] MEDS: Polyethylene Glycol 3350 17 GM PACKET PO SCH (08:02)
[2022-11-19] MEDS: Senna TAB 8.6 mg TAB PO SCH ×2 (08:19→21:13)
[2022-11-19] MEDS: Multivitamins/Minerals TAB PO SCH (08:19)
[2022-11-19] MEDS ORDERED: Magnesium Hydroxide LIQ 30 ML UDC PO PRN (09:49)
[2022-11-19] MEDS ORDERED: Polyethylene Glycol 3350 17 GM PACKET PO PRN (09:50)
[2022-11-20] MEDS: Enoxaparin 40 MG/0.4 ML SYR SUBCUT SCH (07:34)
[2022-11-20] MEDS: Senna TAB 8.6 mg TAB PO SCH ×2 (07:34→21:58)
[2022-11-20] MEDS: Multivitamins/Minerals TAB PO SCH (07:51)
[2022-11-20] MEDS ORDERED: Polyethylene Glycol 3350 17 GM PACKET PO SCH (09:00)
[2022-11-21] MEDS: Multivitamins/Minerals TAB PO SCH (11:30)
[2022-11-21] MEDS: Senna TAB 8.6 mg TAB PO SCH ×2 (11:31→21:50)
[2022-11-21] MEDS: Enoxaparin 40 MG/0.4 ML SYR SUBCUT SCH (11:32)
[2022-11-22] MEDS: Enoxaparin 40 MG/0.4 ML SYR SUBCUT SCH (08:09)
[2022-11-22] MEDS: Senna TAB 8.6 mg TAB PO SCH ×2 (08:58→21:38)
[2022-11-22] MEDS: Multivitamins/Minerals TAB PO SCH (08:58)
[2022-11-23 06:04] LABS: ABS Eosinophils 0.2 10^3/uL (0.0-0.5); ABS Lymphocytes 2.1 10^3/uL (1.0-4.8); ABS Monocytes 0.9 10^3/uL (0.0-1.1); ABS Neutrophils 6.9 10^3/uL (1.5-7.6); Eosinophil % 1.9 %; Hematocrit 35.9 % (38-53); Hemoglobin 12.4 g/dL (13.2-16.3); Lymphocyte % 20.6 %; Mean Corpuscular Hemoglobin 32.8 pg (27-33); Mean Corpuscular Hgb Conc 34.6 g/dL (31-36); Mean Platelet Volume 8.2 fL (7.5-11.2); Platelet Count 192 10^3/uL (150-450); Red Blood Count 3.78 10^6/uL (4.06-5.63); Red Cell Distribution Width 14.6 % (12-17)
[2022-11-23 06:16] LABS: Calcium 8.8 mg/dL (8.6-10.3); Creatinine, Serum 1.78 mg/dL (0.67-1.17); Potassium 3.7 mmol/L (3.5-5.0); eGFR CKD-EPI 45.6 (>60)
[2022-11-23] MEDS: Enoxaparin 40 MG/0.4 ML SYR SUBCUT SCH (08:38)
[2022-11-23] MEDS: Senna TAB 8.6 mg TAB PO SCH ×2 (09:04→21:15)
[2022-11-23] MEDS: Multivitamins/Minerals TAB PO SCH (09:04)
[2022-11-24] MEDS: Enoxaparin 40 MG/0.4 ML SYR SUBCUT SCH (07:33)
[2022-11-24] MEDS: Multivitamins/Minerals TAB PO SCH (08:40)
[2022-11-24] MEDS: Senna TAB 8.6 mg TAB PO SCH ×2 (09:03→20:21)
[2022-11-25] MEDS: Senna TAB 8.6 mg TAB PO SCH (07:49)
[2022-11-25] MEDS: Multivitamins/Minerals TAB PO SCH (07:50)
[2022-11-25] MEDS: Enoxaparin 40 MG/0.4 ML SYR SUBCUT SCH (07:52)
[2022-11-25] MEDS ORDERED: Senna TAB 8.6 mg TAB PO PRN (08:22)
[2022-11-26] MEDS: Multivitamins/Minerals TAB PO SCH (09:36)
[2022-11-26 16:29] LABS: Rapid COVID-19 Molecular Undetected (Undetected)
[2022-11-27 07:55] VITALS: BP 162/110
[2022-11-27] MEDS: Multivitamins/Minerals TAB PO SCH (08:01)
== END 2022-11-27 11:20 | DRG 870 ==
LOC: ED 12:09 → EDHOLD 17:20 → SUATTDRO 17:20 → ICU 19:02 → MED 09-25 08:31
PROVIDERS: ADMIT Surgery Surgical Critical Care; ATTEND Hospitalist